=== PATIENT | male | born 1965 | race African-American/Black ===

== ENCOUNTER 2018-07-09 20:03 | Emergency (ER) | payer MEDICAID ==
[~2018-07-09] VITALS: Ht 170.2 cm; Wt 63.0 kg
[2018-07-09] MEDS ORDERED: KETOROLAC 60MG/2ML VIAL IM ONE (21:30)
[2018-07-09 23:09] VITALS: BP 146/84
== END 2018-07-09 23:10 | disposition home or self-care (01) ==
LOC: ER 20:29
DX: S20.212A Contusion of left front wall of thorax, initial encounter (principal); J45.909 Unspecified asthma, uncomplicated; F12.10 Cannabis abuse, uncomplicated; F15.10 Other stimulant abuse, uncomplicated; Y08.89XA Assault by other specified means, initial encounter; Y93.89 Activity, other specified; Y92.89 Other specified places as the place of occurrence of the external cause; Y99.8 Other external cause status
CPT/HCPCS: 71111; 96372; 99283; J1885; Z7610

== ENCOUNTER 2019-02-18 20:34 | Emergency (ER) | payer MEDICAID ==
[~2019-02-18] VITALS: Ht 170.2 cm; Wt 64.0 kg
[2019-02-18] MEDS ORDERED: ALBUTEROL (0.083%) 2.5MG/3ML NEB HHN STA (21:03)
[2019-02-18] MEDS ORDERED: METHYLPREDNISOLONE SOD SUCC 125 MG/2 ML VIAL IV STA (21:03)
[2019-02-18] MEDS ORDERED: MAGNESIUM 2 G PREMIX 50 ML IV STA (21:03)
[2019-02-18] MEDS ORDERED: IPRATROPIUM BROMIDE (0.02%) 0.5MG/2.5ML NEB HHN STA (21:03)
[2019-02-18 21:31] LABS: EOSINOPHILS % 5.9 % (0.0-5.0); HEMATOCRIT. 45.3 % (42.0-52.0); LYMPHOCYTES % 23.2 % (20.0-50.0); MEAN CORPUSCULAR HEMOGLOBIN 28.2 pg (28.0-32.0); MEAN CORPUSCULAR VOLUME 85.4 fL (80.0-94.0); MEAN PLATELET VOLUME 7.2 fl (7.4-10.4); MONOCYTES % 10.2 % (2.0-8.0); NEUTROPHILS % 59.7 % (40.0-76.0); PLATELET 267 x1000/uL (130-400); RED CELL DISTRIBUTION WIDTH 13.9 % (11.6-14.6)
[2019-02-18 21:36] LABS: CHLORIDE 107 mEq/L (98-107)
[2019-02-18] MEDS ORDERED: SODIUM CHLORIDE 0.9% 1,000 ML IV ONE (22:15)
[2019-02-18] MEDS ORDERED: PREDNISONE 20MG TABLET PO ONE (23:45)
[2019-02-19 00:25] VITALS: BP 120/71
== END 2019-02-19 00:52 | disposition home or self-care (01) ==
LOC: ER 20:34
DX: J45.901 Unspecified asthma with (acute) exacerbation (principal); F17.210 Nicotine dependence, cigarettes, uncomplicated; Z71.6 Tobacco abuse counseling
CPT/HCPCS: 36415; 71045; 80053; 83880; 84484; 85025; 93005; 94644; 96365; 96375; 99285; 99406; J2930; J3475; J7030; J7512; J7611; Z7610

== ENCOUNTER 2019-03-23 18:33 | Emergency (ER) | payer MEDICAID ==
[~2019-03-23] VITALS: Ht 172.7 cm; Wt 75.0 kg
[2019-03-23] MEDS ORDERED: ALBUTEROL (0.083%) 2.5MG/3ML NEB HHN STA (19:31)
[2019-03-23] MEDS ORDERED: MAGNESIUM 2 G PREMIX 50 ML IV STA (19:31)
[2019-03-23] MEDS ORDERED: METHYLPREDNISOLONE SOD SUCC 125 MG/2 ML VIAL IV STA (19:31)
[2019-03-23] MEDS ORDERED: IPRATROPIUM BROMIDE (0.02%) 0.5MG/2.5ML NEB HHN STA (19:31)
[2019-03-23 19:47] VITALS: BP 113/81
[2019-03-23 20:15] LABS: BASOPHILS % 0.4 % (0.0-2.0); EOSINOPHILS % 9.7 % (0.0-5.0); HEMATOCRIT. 44.7 % (42.0-52.0); HEMOGLOBIN. 14.9 g/dL (14.0-18.0); LYMPHOCYTES % 28.7 % (20.0-50.0); MEAN CORPUSCULAR HEMOGLOBIN 28.4 pg (28.0-32.0); MEAN CORPUSCULAR VOLUME 85.3 fL (80.0-94.0); MEAN PLATELET VOLUME 7.2 fl (7.4-10.4); MONOCYTES % 11.8 % (2.0-8.0); NEUTROPHILS % 49.4 % (40.0-76.0); PLATELET 245 x1000/uL (130-400); RED BLOOD CELL COUNT 5.24 mill/uL (4.7-6.1); RED CELL DISTRIBUTION WIDTH 14.9 % (11.6-14.6)
[2019-03-23 20:20] LABS: CHLORIDE 110 mEq/L (98-107)
[2019-03-23 20:24] LABS: ETHANOL BLOOD 75 mg/dL
[2019-03-23] MEDS ORDERED: PREDNISONE 20MG TABLET PO ONE (21:00)
== END 2019-03-23 21:34 | disposition home or self-care (01) ==
LOC: ER 18:33
DX: J45.901 Unspecified asthma with (acute) exacerbation (principal)
CPT/HCPCS: 36415; 71045; 80053; 80320; 83880; 84484; 85025; 93005; 94644; 96365; 96375; 99285; J2930; J3475; J7040; J7611; Z7610; G0480

== ENCOUNTER 2019-04-29 16:59 | Emergency (ER) | payer MEDICAID ==
[~2019-04-29] VITALS: Ht 167.6 cm; Wt 70.0 kg
[2019-04-29] MEDS ORDERED: IPRATROPIUM BROMIDE (0.02%) 0.5MG/2.5ML NEB HHN STA (17:46)
[2019-04-29] MEDS ORDERED: PREDNISONE 20MG TABLET PO STA (17:46)
[2019-04-29] MEDS ORDERED: ALBUTEROL (0.083%) 2.5MG/3ML NEB HHN STA (17:46)
[2019-04-29 19:02] VITALS: BP 102/83
== END 2019-04-29 19:03 | disposition home or self-care (01) ==
LOC: ER 16:59
DX: J44.1 Chronic obstructive pulmonary disease with (acute) exacerbation (principal); R06.03 Acute respiratory distress
CPT/HCPCS: 71045; 93005; 94640; 99283; J7512; J7611; Z7610

== ENCOUNTER 2019-07-03 20:40 | Emergency (ER) | payer MEDICAID ==
[~2019-07-03] VITALS: Ht 175.3 cm; Wt 75.0 kg
[2019-07-03] MEDS ORDERED: IPRATROPIUM BROMIDE (0.02%) 0.5MG/2.5ML NEB HHN STA (21:04)
[2019-07-03] MEDS ORDERED: PREDNISONE 20MG TABLET PO STA (21:04)
[2019-07-03] MEDS ORDERED: ALBUTEROL (0.083%) 2.5MG/3ML NEB HHN STA (21:04)
[2019-07-03 21:57] VITALS: BP 157/87
== END 2019-07-03 23:49 | disposition home or self-care (01) ==
LOC: ER 20:40
DX: J45.901 Unspecified asthma with (acute) exacerbation (principal)
CPT/HCPCS: 94640; 99283; J7512; Z7610

== ENCOUNTER 2019-08-04 03:54 | Emergency (ER) | payer MEDICAID ==
[~2019-08-04] VITALS: Ht 172.7 cm; Wt 86.0 kg
[2019-08-04] MEDS ORDERED: ALBUTEROL (0.083%) 2.5MG/3ML NEB HHN STA (04:44)
[2019-08-04] MEDS ORDERED: IPRATROPIUM BROMIDE (0.02%) 0.5MG/2.5ML NEB HHN STA (04:44)
[2019-08-04] MEDS ORDERED: PREDNISONE 20MG TABLET PO STA (04:44)
[2019-08-04 07:35] VITALS: BP 132/95
== END 2019-08-04 07:36 | disposition home or self-care (01) ==
LOC: ER 03:54
DX: J45.901 Unspecified asthma with (acute) exacerbation (principal)
CPT/HCPCS: 71045; 94640; 99283; J7512; Z7610

== ENCOUNTER 2019-08-10 03:34 | Emergency (ER) | payer MEDICAID ==
[~2019-08-10] VITALS: Ht 172.7 cm; Wt 73.0 kg
[2019-08-10] MEDS ORDERED: ALBUTEROL (0.083%) 2.5MG/3ML NEB HHN STA (03:45)
[2019-08-10] MEDS ORDERED: MAGNESIUM 2 G PREMIX 50 ML IV STA (03:45)
[2019-08-10] MEDS ORDERED: PREDNISONE 20MG TABLET PO STA (03:45)
[2019-08-10] MEDS ORDERED: IPRATROPIUM BROMIDE (0.02%) 0.5MG/2.5ML NEB HHN STA (03:45)
[2019-08-10 05:47] VITALS: BP 130/75
== END 2019-08-10 05:50 | disposition home or self-care (01) ==
LOC: ER 03:34
DX: J45.901 Unspecified asthma with (acute) exacerbation (principal); R03.0 Elevated blood-pressure reading, without diagnosis of hypertension
CPT/HCPCS: 71045; 94640; 96365; 99284; J3475; J7512; Z7610

== ENCOUNTER 2019-08-10 22:07 | Emergency (ER) | payer MEDICAID ==
[~2019-08-10] VITALS: Ht 170.2 cm; Wt 63.0 kg
[2019-08-10] MEDS ORDERED: IPRATROPIUM BROMIDE (0.02%) 0.5MG/2.5ML NEB HHN STA (23:02)
[2019-08-10] MEDS ORDERED: METHYLPREDNISOLONE SOD SUCC 125 MG/2 ML VIAL IM STA (23:02)
[2019-08-10] MEDS ORDERED: ALBUTEROL (0.083%) 2.5MG/3ML NEB HHN STA (23:02)
[2019-08-11 01:19] VITALS: BP 129/72
== END 2019-08-11 01:22 | disposition home or self-care (01) ==
LOC: ER 22:07
DX: J45.901 Unspecified asthma with (acute) exacerbation (principal)
CPT/HCPCS: 96372; 99283; J2930; Z7610

== ENCOUNTER 2019-08-15 01:27 | Emergency (ER) | payer MEDICAID ==
[~2019-08-15] VITALS: Ht 165.1 cm; Wt 82.0 kg
[2019-08-15 03:17] LABS: BASOPHILS % 0.6 % (0.0-2.0); EOSINOPHILS % 10.8 % (0.0-5.0); HEMATOCRIT. 40.9 % (42.0-52.0); HEMOGLOBIN. 13.7 g/dL (14.0-18.0); LYMPHOCYTES % 25.6 % (20.0-50.0); MEAN CORPUSCULAR HEMOGLOBIN 28.6 pg (28.0-32.0); MEAN CORPUSCULAR VOLUME 84.9 fL (80.0-94.0); MEAN PLATELET VOLUME 6.7 fl (7.4-10.4); MONOCYTES % 8.9 % (2.0-8.0); NEUTROPHILS % 54.1 % (40.0-76.0); PLATELET 255 x1000/uL (130-400); RED BLOOD CELL COUNT 4.81 mill/uL (4.7-6.1); RED CELL DISTRIBUTION WIDTH 14.4 % (11.6-14.6)
[2019-08-15 03:22] LABS: CHLORIDE 108 mEq/L (98-107)
[2019-08-15 03:26] LABS: ETHANOL BLOOD 94 mg/dL
[2019-08-15] MEDS ORDERED: ONDANSETRON 4MG ODT PO ONE (04:00)
[2019-08-15 04:29] LABS: *AMPHETAMINES SCREEN URINE NEGATIVE (NEGATIVE); *BARBITURATES SCREEN URINE NEGATIVE (NEGATIVE); *BENZODIAZEPINES SCREEN URINE NEGATIVE (NEGATIVE); CANNABINOID URINE SCREEN NEGATIVE (NEGATIVE); METHADONE URINE SCREEN NEGATIVE (NEGATIVE); OPIATES URINE SCREEN NEGATIVE (NEGATIVE); PHENCYCLIDINE URINE SCREEN NEGATIVE (NEGATIVE)
[2019-08-15 04:30] LABS: *COCAINE SCREEN URINE NEGATIVE (NEGATIVE)
[2019-08-15 08:20] VITALS: BP 124/76
== END 2019-08-15 08:20 | disposition home or self-care (01) ==
LOC: ER 01:27
DX: F10.129 Alcohol abuse with intoxication, unspecified (principal); F19.10 Other psychoactive substance abuse, uncomplicated; Y90.4 Blood alcohol level of 80-99 mg/100 ml
CPT/HCPCS: 36415; 80053; 80305; 80320; 82962; 84484; 85025; 93005; 99285; Q0162; Z7610; G0480

== ENCOUNTER 2019-10-20 00:43 | Inpatient (IN) | payer MEDICAID ==
[~2019-10-20] VITALS: Ht 170.2 cm; Wt 65.5 kg
[2019-10-20] VITALS (9 sets, daily range): BP systolic 12–128; BP diastolic 49–85
[2019-10-20] MEDS ORDERED: IPRATROPIUM BROMIDE (0.02%) 0.5MG/2.5ML NEB HHN STA (00:59)
[2019-10-20] MEDS ORDERED: ALBUTEROL (0.083%) 2.5MG/3ML NEB HHN STA (00:59)
[2019-10-20] MEDS ORDERED: METHYLPREDNISOLONE SOD SUCC 125 MG/2 ML VIAL IV STA (00:59)
[2019-10-20] MEDS ORDERED: MAGNESIUM 2 G PREMIX 50 ML IV ONE (02:00)
[2019-10-20 02:58] LABS: CHLORIDE 100 mEq/L (98-107)
[2019-10-20 03:06] LABS: HEMATOCRIT 46.5 % (42.0-52.0); HEMOGLOBIN 15.4 g/dL (14.0-18.0); MEAN CORPUSCULAR HEMOGLOBIN 28.6 pg (28.0-32.0); MEAN CORPUSCULAR VOLUME 86.1 fL (80.0-94.0); PLATELET 289 x1000/uL (130-400); RED CELL DISTRIBUTION WIDTH 13.4 % (11.6-14.6)
[2019-10-20] MEDS ORDERED: ONDANSETRON HCL 4MG/2ML INJ IV PRN (09:30)
[2019-10-20] MEDS ORDERED: ACETAMINOPHEN 325MG TABLET PO PRN (09:30)
[2019-10-20] MEDS: ENOXAPARIN 40MG/0.4ML SYR SUBCUT SCH (10:50)
[2019-10-20] MEDS: METHYLPREDNISOLONE SOD SUCC 40 MG/ML VIAL IV SCH ×2 (11:36→18:42)
[2019-10-20] MEDS: IPRATROPIUM/ALBUTEROL 0.5-3(2.5)MG/3ML NEB HHN SCH ×2 (13:31→16:09)
[2019-10-20] MEDS ORDERED: FLUT1DIS3 INH (15:40)
[2019-10-20] MEDS ORDERED: ALBU18HF2 IH (15:40)
[2019-10-21] VITALS (15 sets, daily range): BP systolic 97–127; BP diastolic 55–81
[2019-10-21] MEDS: METHYLPREDNISOLONE SOD SUCC 40 MG/ML VIAL IV SCH ×3 (04:00→18:56)
[2019-10-21 05:14] LABS: *AMPHETAMINES SCREEN URINE NEGATIVE (NEGATIVE); *BARBITURATES SCREEN URINE NEGATIVE (NEGATIVE); *BENZODIAZEPINES SCREEN URINE NEGATIVE (NEGATIVE); *COCAINE SCREEN URINE NEGATIVE (NEGATIVE); METHADONE URINE SCREEN NEGATIVE (NEGATIVE); OPIATES URINE SCREEN NEGATIVE (NEGATIVE)
[2019-10-21 05:15] LABS: CANNABINOID URINE SCREEN PRESUMTIVE POSITIVE (NEGATIVE); PHENCYCLIDINE URINE SCREEN NEGATIVE (NEGATIVE)
[2019-10-21] MEDS: IPRATROPIUM/ALBUTEROL 0.5-3(2.5)MG/3ML NEB HHN SCH ×3 (08:08→21:03)
[2019-10-21] MEDS: ENOXAPARIN 40MG/0.4ML SYR SUBCUT SCH (08:53)
[2019-10-21] MEDS ORDERED: MED4 MT (13:24)
[2019-10-21 14:08] LABS: BG BASE EXCESS 1.4 mmol/L (-2.0-2.0); BG CARBOXYHEMOGLOBIN 0.6 % (0.5-1.5); BG FRACTION INSPIRED OXYGEN 21; BG METHEMOGLOBIN 0.3 % (0.0-1.5); BG OXYHEMOGLOBIN 95.1 % (94.0-97.0); BG PCO2 41.2 mmHg (35.0-45.0); BG PH 7.418 (7.350-7.450); BG PO2 74.2 mmHg (75.0-100.0); BG SAMPLE SITE RIGHT RADIAL; BG TOTAL HEMOGLOBIN 15.5 g/dL (12.0-18.0); BG VENT MODE ROOM AIR
[2019-10-22] VITALS (11 sets, daily range): BP systolic 99–126; BP diastolic 53–103
[2019-10-22] MEDS: METHYLPREDNISOLONE SOD SUCC 40 MG/ML VIAL IV SCH ×2 (03:13→12:01)
[2019-10-22] MEDS: IPRATROPIUM/ALBUTEROL 0.5-3(2.5)MG/3ML NEB HHN SCH ×3 (04:13→13:17)
[2019-10-22] MEDS: ENOXAPARIN 40MG/0.4ML SYR SUBCUT SCH (09:51)
== END 2019-10-22 15:10 | disposition home or self-care (01) | DRG 140 ==
LOC: ER 00:43 → 3WST 02:28 → EDBEDREQ 02:38 → EDBEDREQTM 02:38 → ENRESERV 07:25
PROVIDERS: ADMIT Internal Medicine; ATTEND Internal Medicine
PROC: 5A09357 Assistance with Respiratory Ventilation, Less than 24 Consecutive Hours, Continuous Positive Airway Pressure (ICD-10-PCS; principal; 2019-10-20)
DX: J44.1 Chronic obstructive pulmonary disease with (acute) exacerbation (principal); J45.901 Unspecified asthma with (acute) exacerbation; J96.00 Acute respiratory failure, unspecified whether with hypoxia or hypercapnia; F10.10 Alcohol abuse, uncomplicated; F17.210 Nicotine dependence, cigarettes, uncomplicated; Z71.6 Tobacco abuse counseling
CPT/HCPCS: 36415; 36600; 71045; 80053; 80305; 82375; 82805; 85027; 94618; 94640; 94644; 94660; 97162; 99291; J1650; J2920; J2930; J3475

== ENCOUNTER 2021-02-16 16:38 | Inpatient (IN) | payer MEDICAID ==
[~2021-02-16] VITALS: Ht 170.2 cm; Wt 70.3 kg
[~2021-02-16 16:38] MED LIST: CLAR10 PO; FLUT1DIS3 INH; IPRA3AMP9 HHN; MED4 MT; MONT10TA21 PO
[2021-02-16] MEDS ORDERED: METHYLPREDNISOLONE SOD SUCC 125 MG/2 ML VIAL IV STA (17:35)
[2021-02-16] MEDS ORDERED: IPRATROPIUM BROMIDE (0.02%) 0.5MG/2.5ML NEB HHN STA (17:35)
[2021-02-16 17:44] LABS: BASOPHILS % 0.4 % (0.0-2.0); EOSINOPHILS % 2.3 % (0.0-5.0); HEMATOCRIT. 41.7 % (42.0-52.0); HEMOGLOBIN. 13.3 g/dL (14.0-18.0); LYMPHOCYTES % 20.8 % (20.0-50.0); MEAN CORPUSCULAR HEMOGLOBIN 25.5 pg (28.0-32.0); MEAN PLATELET VOLUME 6.9 fl (7.4-10.4); MONOCYTES % 12.7 % (2.0-8.0); NEUTROPHILS % 63.8 % (40.0-76.0); PLATELET 308 x1000/uL (130-400); RED BLOOD CELL COUNT 5.22 mill/uL (4.7-6.1); RED CELL DISTRIBUTION WIDTH 14.9 % (11.6-14.6)
[2021-02-16 17:53] LABS: CHLORIDE 104 mEq/L (98-107)
[2021-02-16] MEDS: ALBUTEROL (0.083%) 2.5MG/3ML NEB HHN SCH ×3 (18:01→18:50)
[2021-02-16 18:29] LABS: BG BASE EXCESS 3.3 mmol/L (-2.0-2.0); BG CARBOXYHEMOGLOBIN 0.3 % (0.5-1.5); BG DEOXYHEMOGLOBIN 6.4 % (0.0-5.0); BG FRACTION INSPIRED OXYGEN 21; BG HCO3 ACT 29.4 mmol/L (22.0-26.0); BG METHEMOGLOBIN 0.4 % (0.0-1.5); BG OXYGEN SATURATION 93.6 % (92.0-98.5); BG OXYHEMOGLOBIN 92.9 % (94.0-97.0); BG PCO2 50.5 mmHg (35.0-45.0); BG PH 7.383 (7.350-7.450); BG PO2 72.4 mmHg (75.0-100.0); BG SAMPLE SITE RIGHT RADIAL; BG TOTAL HEMOGLOBIN 13.7 g/dL (12.0-18.0); BG VENT MODE ROOM AIR
[2021-02-16] MEDS ORDERED: DOXYCYCLINE 100MG in DEXTROSE 5% WATER 100ML IV NR (20:12)
[2021-02-16] MEDS ORDERED: DOXYCYCLINE HYCLATE 100 MG/VIAL IV ONE (20:15)
[2021-02-16] MEDS ORDERED: CEFTRIAXONE 1 G PREMIX 50 ML IV ONE (20:15)
[2021-02-17] VITALS (7 sets, daily range): BP systolic 105–131; BP diastolic 65–85
[2021-02-17 00:37] LABS: BG BASE EXCESS 1.2 mmol/L (-2.0-2.0); BG CARBOXYHEMOGLOBIN 0.3 % (0.5-1.5); BG DEOXYHEMOGLOBIN 1.5 % (0.0-5.0); BG FRACTION INSPIRED OXYGEN 30; BG HCO3 ACT 26.6 mmol/L (22.0-26.0); BG METHEMOGLOBIN 0.2 % (0.0-1.5); BG OXYGEN SATURATION 98.5 % (92.0-98.5); BG PH 7.389 (7.350-7.450); BG PO2 132.3 mmHg (75.0-100.0); BG SAMPLE SITE RIGHT RADIAL; BG TOTAL HEMOGLOBIN 13.9 g/dL (12.0-18.0); BG VENT MODE MASK - BIPAP
[2021-02-17] MEDS ORDERED: IPRATROPIUM/ALBUTEROL 0.5-3(2.5)MG/3ML NEB HHN PRN ×3 (02:30→08:00)
[2021-02-17] MEDS ORDERED: ACETAMINOPHEN 325MG TABLET PO PRN ×2 (04:45→08:00)
[2021-02-17] MEDS ORDERED: ZOLPIDEM TARTRATE 5MG TABLET PO PRN (04:45)
[2021-02-17] MEDS ORDERED: ONDANSETRON HCL 4MG/2ML INJ IV PRN (04:45)
[2021-02-17] MEDS ORDERED: AZITHROMYCIN 500MG in DEXTROSE 5% WATER 250ML IV SCH (06:00)
[2021-02-17] MEDS: IPRATROPIUM/ALBUTEROL 0.5-3(2.5)MG/3ML NEB HHN SCH ×2 (07:38→11:39)
[2021-02-17] MEDS ORDERED: CLONIDINE 0.1MG TABLET PO PRN (08:00)
[2021-02-17] MEDS ORDERED: DOCUSATE SODIUM 100MG CAPSULE PO PRN (08:00)
[2021-02-17] MEDS ORDERED: HYDROCODONE/ACETAMINOPHEN 5/325MG TABLET PO PRN (08:00)
[2021-02-17] MEDS ORDERED: MAGNESIUM/ALUMINUM HYDROXIDE/SIMETHICONE 30ML UDC PO PRN (08:00)
[2021-02-17] MEDS ORDERED: NALOXONE HCL 0.4MG/ML VIAL IV PRN (08:15)
[2021-02-17] MEDS ORDERED: METHYLPREDNISOLONE SOD SUCC 40 MG/ML VIAL IV SCH (09:00)
[2021-02-17] MEDS ORDERED: CEFTRIAXONE SODIUM 1 G/VIAL IV SCH (09:00)
[2021-02-17] MEDS ORDERED: ENOXAPARIN 40MG/0.4ML SYR SUBCUT SCH (09:00)
[2021-02-17] MEDS ORDERED: AZITHROMYCIN 500MG/250ML 250 ML IV SCH (09:00)
[2021-02-17] MEDS ORDERED: FAMOTIDINE 20MG TABLET PO SCH (09:00)
[2021-02-17 10:46] LABS: *BARBITURATES SCREEN URINE NEGATIVE (NEGATIVE)
[2021-02-17 10:47] LABS: *BENZODIAZEPINES SCREEN URINE NEGATIVE (NEGATIVE); *COCAINE SCREEN URINE NEGATIVE (NEGATIVE); METHADONE URINE SCREEN NEGATIVE (NEGATIVE); OPIATES URINE SCREEN NEGATIVE (NEGATIVE); PHENCYCLIDINE URINE SCREEN NEGATIVE (NEGATIVE)
[2021-02-17 10:48] LABS: *AMPHETAMINES SCREEN URINE PRESUMTIVE POSITIVE (NEGATIVE)
[2021-02-17 11:22] LABS: CANNABINOID URINE SCREEN PRESUMTIVE POSITIVE (NEGATIVE)
[2021-02-17] MEDS ORDERED: CEFTRIAXONE 1,000 MG in DEXTROSE 5% WATER 50 ML IV SCH (21:00)
== END 2021-02-17 18:21 | disposition home or self-care (01) | DRG 140 ==
LOC: ER 16:38 → 5EST 21:10 → ENRESERV 02-17 03:14
PROVIDERS: ADMIT Internal Medicine; ATTEND Internal Medicine
PROC: 5A09357 Assistance with Respiratory Ventilation, Less than 24 Consecutive Hours, Continuous Positive Airway Pressure (ICD-10-PCS; principal; 2021-02-16)
DX: J44.1 Chronic obstructive pulmonary disease with (acute) exacerbation (principal); J96.02 Acute respiratory failure with hypercapnia; Z20.822 Contact with and (suspected) exposure to COVID-19
CPT/HCPCS: 36415; 36600; 71045; 80053; 80305; 82375; 82805; 83880; 84484; 85025; 87426; 93005; 93970; 94640; 94660; 99291; J0456; J0696; J1650; J2920; J2930; J3490; J7060

== ENCOUNTER 2022-08-15 23:07 | Inpatient (IN) | payer MEDICAID, OTHER ==
[2022-08-13] MEDS: ALBUTEROL (0.083%) 2.5MG/3ML NEB HHN SCH (23:40)
[~2022-08-15] VITALS: Ht 165.1 cm; Wt 70.8 kg
[~2022-08-15 23:07] MED LIST changes: -MED4 MT; +MONT-46 PO; -MONT10TA21 PO
[2022-08-15] MEDS ORDERED: METHYLPREDNISOLONE SOD SUCC 125 MG/2 ML VIAL IV STA (23:20)
[2022-08-15] MEDS ORDERED: IPRATROPIUM BROMIDE (0.02%) 0.5MG/2.5ML NEB HHN STA (23:20)
[2022-08-15] MEDS ORDERED: ONDANSETRON HCL 4MG/2ML INJ IV STA (23:20)
[2022-08-15] MEDS ORDERED: MORPHINE SULFATE 4 MG/ML CPJ (NOT FOR IM USE) IV STA (23:20)
[2022-08-15] MEDS ORDERED: MIDAZOLAM HCL 2 MG/2 ML VIAL IV ONE ×2 (23:30)
[2022-08-15] MEDS ORDERED: MAGNESIUM 2 G PREMIX 50 ML IV ONE (23:30)
[2022-08-15] MEDS ORDERED: SUCCINYLCHOLINE CHLORIDE 200MG/10ML IV ONE (23:30)
[2022-08-15] MEDS ORDERED: SODIUM CHLORIDE 0.9% 1,000 ML IV ONE (23:30)
[2022-08-15] MEDS ORDERED: MIDAZOLAM HCL 100 MG in DEXT 5% WATER 80 ML IV ONE (23:30)
[2022-08-15] MEDS ORDERED: PROPOFOL 10MG/ML 100ML 100 ML IV ONE (23:30)
[2022-08-15] MEDS ORDERED: ETOMIDATE 2MG/ML 10ML VIAL IV ONE (23:30)
[2022-08-15] MEDS: ALBUTEROL (0.083%) 2.5MG/3ML NEB HHN SCH (23:40)
[2022-08-15] MEDS ORDERED: MIDAZOLAM HCL 100 MG in SODIUM CHLORIDE 0.9% 80 ML IV ONE (23:45)
[2022-08-15 23:57] LABS: BASOPHILS % 0.3 % (0.0-2.0); EOSINOPHILS % 0.5 % (0.0-5.0); HEMATOCRIT. 47.5 % (42.0-52.0); HEMOGLOBIN. 15.3 g/dL (14.0-18.0); LYMPHOCYTES % 8.4 % (20.0-50.0); MEAN CORPUSCULAR HEMOGLOBIN 26.8 pg (28.0-32.0); MEAN CORPUSCULAR VOLUME 83.4 fL (80.0-94.0); MEAN PLATELET VOLUME 7.3 fl (7.4-10.4); MONOCYTES % 9.1 % (2.0-8.0); NEUTROPHILS % 81.7 % (40.0-76.0); PLATELET 293 x1000/uL (130-400); RED CELL DISTRIBUTION WIDTH 15.7 % (11.6-14.6)
[2022-08-16] VITALS (65 sets, daily range): BP systolic 105–155; BP diastolic 52–117
[2022-08-16 00:06] LABS: CHLORIDE 94 mEq/L (98-107)
[2022-08-16] MEDS ORDERED: SODIUM CHLORIDE 0.9% 1,000 ML IV ONE ×3 (00:30→01:45)
[2022-08-16 00:47] LABS: BG BASE EXCESS -3.1 mmol/L (-2.0-2.0); BG CARBOXYHEMOGLOBIN 0.8 % (0.5-1.5); BG DEOXYHEMOGLOBIN 0.3 % (0.0-5.0); BG FRACTION INSPIRED OXYGEN 60; BG HCO3 ACT 25.6 mmol/L (22.0-26.0); BG METHEMOGLOBIN 0.4 % (0.0-1.5); BG OXYGEN SATURATION 99.7 % (92.0-98.5); BG OXYHEMOGLOBIN 98.5 % (94.0-97.0); BG PCO2 62.3 mmHg (35.0-45.0); BG PH 7.232 (7.350-7.450); BG PO2 290.7 mmHg (75.0-100.0); BG SAMPLE SITE RIGHT RADIAL; BG TOTAL HEMOGLOBIN 14.2 g/dL (12.0-18.0); BG TOTAL RESPIRATORY RATE 23 b/min; BG VENT MODE VENT - AC
[2022-08-16] MEDS ORDERED: PROPOFOL 10MG/ML 100ML 100 ML IV PRN ×2 (03:15→06:45)
[2022-08-16] MEDS ORDERED: PROPOFOL 10MG/ML 100ML 100 ML IV ONE (03:15)
[2022-08-16] MEDS ORDERED: IOHEXOL-350 100 ML BOTTLE ONE (06:14)
[2022-08-16] MEDS ORDERED: MIDAZOLAM 100MG/100ML PMX 100 ML IV PRN (06:45)
[2022-08-16] MEDS ORDERED: MIDAZOLAM HCL 100 MG in SODIUM CHLORIDE 0.9% 100 ML IV PRN (06:45)
[2022-08-16 07:37] LABS: BG BASE EXCESS -2.4 mmol/L (-2.0-2.0); BG CARBOXYHEMOGLOBIN 0.7 % (0.5-1.5); BG DEOXYHEMOGLOBIN 1.5 % (0.0-5.0); BG FRACTION INSPIRED OXYGEN 40; BG HCO3 ACT 23.6 mmol/L (22.0-26.0); BG METHEMOGLOBIN 0.2 % (0.0-1.5); BG OXYGEN SATURATION 98.5 % (92.0-98.5); BG OXYHEMOGLOBIN 97.6 % (94.0-97.0); BG PCO2 45.1 mmHg (35.0-45.0); BG PH 7.337 (7.350-7.450); BG PO2 128.5 mmHg (75.0-100.0); BG SAMPLE SITE RIGHT RADIAL; BG TOTAL HEMOGLOBIN 14.1 g/dL (12.0-18.0); BG VENT MODE VENT - AC
[2022-08-16] MEDS: IPRATROPIUM/ALBUTEROL 0.5-3(2.5)MG/3ML NEB HHN SCH ×4 (08:06→20:53)
[2022-08-16] MEDS: ENOXAPARIN 80MG/0.8ML SYR SUBCUT SCH ×2 (08:20→20:45)
[2022-08-16] MEDS: METHYLPREDNISOLONE SOD SUCC 40 MG/ML VIAL IV SCH ×2 (08:55→16:30)
[2022-08-16] MEDS: PROPOFOL 10MG/ML 100ML 100 ML IV PRN ×3 (12:18→21:15)
[2022-08-16] MEDS: FENTANYL CITRATE/PF 2,500 MCG in SODIUM CHLORIDE 0.9% 200 ML IV PRN (12:40)
[2022-08-16 13:00] LABS: CHLORIDE 105 mEq/L (98-107)
[2022-08-16] MEDS: MONTELUKAST SODIUM 10MG TABLET PO SCH (17:25)
[2022-08-16 18:24] LABS: CLARITY URINE CLOUDY (CLEAR); COLOR URINE YELLOW (YELLOW); KETONES URINE 1+ (NEGATIVE); LEUKOCYTE ESTERASE URINE 3+ (NEGATIVE); NITRITE URINE NEGATIVE (NEGATIVE); OCCULT BLOOD URINE 2+ (NEGATIVE); PROTEIN URINE 1+ (NEGATIVE); SPECIFIC GRAVITY URINE 1.028 (1.005-1.030)
[2022-08-16 18:50] LABS: *AMPHETAMINES SCREEN URINE NEGATIVE (NEGATIVE); *BARBITURATES SCREEN URINE NEGATIVE (NEGATIVE); *BENZODIAZEPINES SCREEN URINE PRESUMTIVE POSITIVE (NEGATIVE); *COCAINE SCREEN URINE NEGATIVE (NEGATIVE); CANNABINOID URINE SCREEN PRESUMTIVE POSITIVE (NEGATIVE); METHADONE URINE SCREEN NEGATIVE (NEGATIVE); OPIATES URINE SCREEN PRESUMTIVE POSITIVE (NEGATIVE); PHENCYCLIDINE URINE SCREEN NEGATIVE (NEGATIVE)
[2022-08-17] VITALS (81 sets, daily range): BP systolic 88–157; BP diastolic 51–111
[2022-08-17] MEDS: METHYLPREDNISOLONE SOD SUCC 40 MG/ML VIAL IV SCH ×3 (00:32→17:27)
[2022-08-17] MEDS: PROPOFOL 10MG/ML 100ML 100 ML IV PRN ×6 (01:46→19:08)
[2022-08-17 06:48] LABS: CHLORIDE 105 mEq/L (98-107)
[2022-08-17 06:49] LABS: BASOPHILS % 0.1 % (0.0-2.0); EOSINOPHILS % 0.2 % (0.0-5.0); HEMATOCRIT. 38.1 % (42.0-52.0); HEMOGLOBIN. 12.7 g/dL (14.0-18.0); LYMPHOCYTES % 8.2 % (20.0-50.0); MEAN CORPUSCULAR HEMOGLOBIN 27.3 pg (28.0-32.0); MEAN CORPUSCULAR VOLUME 82.2 fL (80.0-94.0); MONOCYTES % 10.8 % (2.0-8.0); NEUTROPHILS % 80.7 % (40.0-76.0); PLATELET 243 x1000/uL (130-400); RED BLOOD CELL COUNT 4.64 mill/uL (4.7-6.1); RED CELL DISTRIBUTION WIDTH 15.5 % (11.6-14.6)
[2022-08-17 06:53] LABS: PROTHROMBIN TIME 10.4 sec (9.6-11.0)
[2022-08-17] MEDS: IPRATROPIUM/ALBUTEROL 0.5-3(2.5)MG/3ML NEB HHN SCH ×3 (07:44→20:29)
[2022-08-17] MEDS: PANTOPRAZOLE SODIUM 40 MG/VIAL IV SCH (08:13)
[2022-08-17] MEDS: ENOXAPARIN 80MG/0.8ML SYR SUBCUT SCH ×2 (08:13→20:11)
[2022-08-17 08:59] LABS: BG BASE EXCESS 3.5 mmol/L (-2.0-2.0); BG CARBOXYHEMOGLOBIN 0.5 % (0.5-1.5); BG DEOXYHEMOGLOBIN 2.1 % (0.0-5.0); BG FRACTION INSPIRED OXYGEN 30; BG HCO3 ACT 28.2 mmol/L (22.0-26.0); BG METHEMOGLOBIN 0.1 % (0.0-1.5); BG OXYGEN SATURATION 97.9 % (92.0-98.5); BG OXYHEMOGLOBIN 97.3 % (94.0-97.0); BG PCO2 43.2 mmHg (35.0-45.0); BG PH 7.433 (7.350-7.450); BG PO2 102.6 mmHg (75.0-100.0); BG SAMPLE SITE LEFT RADIAL; BG TOTAL HEMOGLOBIN 13.6 g/dL (12.0-18.0); BG TOTAL RESPIRATORY RATE 22 b/min; BG VENT MODE VENT - AC
[2022-08-17] MEDS: CEFEPIME 1,000 MG in DEXTROSE 5% WATER 50 ML IV SCH ×2 (11:40→20:11)
[2022-08-17] MEDS: MONTELUKAST SODIUM 10MG TABLET PO SCH (17:28)
[2022-08-18] VITALS (92 sets, daily range): BP systolic 93–197; BP diastolic 48–121
[2022-08-18] MEDS: PROPOFOL 10MG/ML 100ML 100 ML IV PRN ×3 (00:03→08:25)
[2022-08-18] MEDS: METHYLPREDNISOLONE SOD SUCC 40 MG/ML VIAL IV SCH ×2 (00:08→08:24)
[2022-08-18] MEDS: IPRATROPIUM/ALBUTEROL 0.5-3(2.5)MG/3ML NEB HHN SCH ×4 (02:01→19:49)
[2022-08-18] MEDS: ENOXAPARIN 80MG/0.8ML SYR SUBCUT SCH ×2 (08:23→20:03)
[2022-08-18] MEDS: PANTOPRAZOLE SODIUM 40 MG/VIAL IV SCH (08:24)
[2022-08-18] MEDS: CEFEPIME 1,000 MG in DEXTROSE 5% WATER 50 ML IV SCH ×2 (08:24→21:31)
[2022-08-18] MEDS ORDERED: PROPOFOL 10MG/ML 100ML 100 ML IV PRN (08:30)
[2022-08-18] MEDS ORDERED: TERBUTALINE SULFATE 1MG/ML VIAL SUBCUT NR (11:00)
[2022-08-18] MEDS: METHYLPREDNISOLONE SOD SUCC 125 MG/2 ML VIAL IV SCH ×2 (11:52→17:34)
[2022-08-18] MEDS: IPRATROPIUM/ALBUTEROL 0.5-3(2.5)MG/3ML NEB HHN PRN ×2 (12:38→16:48)
[2022-08-18] MEDS: MIDAZOLAM HCL 100 MG in SODIUM CHLORIDE 0.9% 80 ML IV PRN (14:46)
[2022-08-18] MEDS: MONTELUKAST SODIUM 10MG TABLET PO SCH (17:34)
[2022-08-18] MEDS: FENTANYL CITRATE/PF 2,500 MCG in SODIUM CHLORIDE 0.9% 200 ML IV PRN (17:37)
[2022-08-19] VITALS (60 sets, daily range): BP systolic 98–136; BP diastolic 34–99
[2022-08-19] MEDS: METHYLPREDNISOLONE SOD SUCC 125 MG/2 ML VIAL IV SCH ×4 (01:37→18:01)
[2022-08-19] MEDS: IPRATROPIUM/ALBUTEROL 0.5-3(2.5)MG/3ML NEB HHN SCH ×5 (02:08→20:54)
[2022-08-19] MEDS: MIDAZOLAM HCL 100 MG in SODIUM CHLORIDE 0.9% 80 ML IV PRN ×2 (03:52→17:42)
[2022-08-19 08:56] LABS: BG BASE EXCESS 3.5 mmol/L (-2.0-2.0); BG CARBOXYHEMOGLOBIN 0.8 % (0.5-1.5); BG DEOXYHEMOGLOBIN 3.8 % (0.0-5.0); BG FRACTION INSPIRED OXYGEN 30; BG HCO3 ACT 29.6 mmol/L (22.0-26.0); BG METHEMOGLOBIN 0.3 % (0.0-1.5); BG OXYGEN SATURATION 96.2 % (92.0-98.5); BG OXYHEMOGLOBIN 95.1 % (94.0-97.0); BG PCO2 51.2 mmHg (35.0-45.0); BG PO2 85.7 mmHg (75.0-100.0); BG SAMPLE SITE RIGHT RADIAL; BG TOTAL HEMOGLOBIN 13.4 g/dL (12.0-18.0); BG VENT MODE VENT - AC
[2022-08-19] MEDS: ENOXAPARIN 80MG/0.8ML SYR SUBCUT SCH ×2 (09:36→21:24)
[2022-08-19] MEDS: PANTOPRAZOLE SODIUM 40 MG/VIAL IV SCH (09:36)
[2022-08-19] MEDS: CEFEPIME 1,000 MG in DEXTROSE 5% WATER 50 ML IV SCH ×2 (09:37→21:24)
[2022-08-19] MEDS: IPRATROPIUM/ALBUTEROL 0.5-3(2.5)MG/3ML NEB HHN PRN ×3 (10:16→17:43)
[2022-08-19] MEDS: THEOPHYLLINE ANHYDROUS 80 MG/15 ML 120ML PO SCH ×2 (13:00→18:03)
[2022-08-19] MEDS: BUDESONIDE 0.5MG/2ML NEB HHN SCH ×2 (13:59→20:54)
[2022-08-19 16:27] LABS: HEMATOCRIT. 38.2 % (42.0-52.0); HEMOGLOBIN. 12.6 g/dL (14.0-18.0); MEAN CORPUSCULAR HEMOGLOBIN 27.2 pg (28.0-32.0); MEAN CORPUSCULAR VOLUME 82.3 fL (80.0-94.0); MEAN PLATELET VOLUME 7.9 fl (7.4-10.4); PLATELET 286 x1000/uL (130-400); RED BLOOD CELL COUNT 4.65 mill/uL (4.7-6.1); RED CELL DISTRIBUTION WIDTH 15.9 % (11.6-14.6)
[2022-08-19 16:30] LABS: PROTHROMBIN TIME 10.9 sec (9.6-11.0)
[2022-08-19 16:36] LABS: CHLORIDE 108 mEq/L (98-107)
[2022-08-19] MEDS: FENTANYL CITRATE/PF 2,500 MCG in SODIUM CHLORIDE 0.9% 200 ML IV PRN (17:42)
[2022-08-19] MEDS: MONTELUKAST SODIUM 10MG TABLET PO SCH (18:01)
[2022-08-19 18:05] LABS: PLATELET ESTIMATE NORMAL
[2022-08-19 19:06] LABS: DRVVT LA 44.4 sec (0.0-47.0); PTT-LA 35.8 sec (0.0-43.5)
[2022-08-19] MEDS ORDERED: LORAZEPAM 2MG/ML CPJ IV NR (21:43)
[2022-08-19] MEDS ORDERED: NOREPINEPHRINE 32 MG in DEXT 5% WATER 218 ML IV PRN (23:15)
[2022-08-19] MEDS ORDERED: PHENYLEPHRINE 100 MG in DEXT 5% WATER 240 ML IV PRN (23:15)
[2022-08-20] VITALS (65 sets, daily range): BP systolic 106–186; BP diastolic 72–136
[2022-08-20] MEDS: IPRATROPIUM/ALBUTEROL 0.5-3(2.5)MG/3ML NEB HHN SCH ×6 (01:11→20:15)
[2022-08-20] MEDS: METHYLPREDNISOLONE SOD SUCC 125 MG/2 ML VIAL IV SCH ×2 (01:45→06:46)
[2022-08-20] MEDS: THEOPHYLLINE ANHYDROUS 80 MG/15 ML 120ML PO SCH (01:54)
[2022-08-20 04:07] LABS: LUPUS ANTICOAG INTERPRETATION Comment: (.)
[2022-08-20 06:45] LABS: HEMATOCRIT. 38.2 % (42.0-52.0); HEMOGLOBIN. 12.4 g/dL (14.0-18.0); MEAN CORPUSCULAR HEMOGLOBIN 26.6 pg (28.0-32.0); MEAN CORPUSCULAR VOLUME 82.2 fL (80.0-94.0); MEAN PLATELET VOLUME 7.6 fl (7.4-10.4); PLATELET 320 x1000/uL (130-400); RED BLOOD CELL COUNT 4.65 mill/uL (4.7-6.1); RED CELL DISTRIBUTION WIDTH 15.8 % (11.6-14.6)
[2022-08-20] MEDS: THEOPHYLLINE ANHYDROUS 80 MG/15 ML 120ML PEG SCH ×3 (06:46→17:49)
[2022-08-20 06:48] LABS: PROTHROMBIN TIME 10.9 sec (9.6-11.0)
[2022-08-20 07:33] LABS: CHLORIDE 106 mEq/L (98-107)
[2022-08-20] MEDS: ENOXAPARIN 80MG/0.8ML SYR SUBCUT SCH ×2 (07:51→19:24)
[2022-08-20] MEDS: BUDESONIDE 0.5MG/2ML NEB HHN SCH ×2 (08:15→20:15)
[2022-08-20] MEDS: CEFEPIME 1,000 MG in DEXTROSE 5% WATER 50 ML IV SCH ×2 (08:56→21:16)
[2022-08-20] MEDS: PANTOPRAZOLE SODIUM 40 MG/VIAL IV SCH (10:53)
[2022-08-20] MEDS ORDERED: RACEPINEPHRINE 2.25% 0.5ML NEB VIAL HHN PRN (12:00)
[2022-08-20] MEDS ORDERED: ETOMIDATE 2MG/ML 10ML VIAL IV ONE (12:00)
[2022-08-20] MEDS ORDERED: VECURONIUM BROMIDE 10 MG/VIAL IV ONE (12:00)
[2022-08-20] MEDS: HALOPERIDOL LACTATE 5MG/ML VIAL IM PRN ×2 (12:04→23:15)
[2022-08-20] MEDS: METHYLPREDNISOLONE SOD SUCC 40 MG/ML VIAL IV SCH ×2 (12:04→20:35)
[2022-08-20 12:23] LABS: BG FRACTION INSPIRED OXYGEN 30; BG SAMPLE SITE RIGHT RADIAL; BG VENT RATE 20 set
[2022-08-20 12:24] LABS: BG BASE EXCESS 2.8 mmol/L (-2.0-2.0); BG CARBOXYHEMOGLOBIN 0.6 % (0.5-1.5); BG HCO3 ACT 26.9 mmol/L (22.0-26.0); BG METHEMOGLOBIN 0.2 % (0.0-1.5); BG OXYGEN SATURATION 96.8 % (92.0-98.5); BG PCO2 39.7 mmHg (35.0-45.0); BG PH 7.449 (7.350-7.450); BG PO2 85.7 mmHg (75.0-100.0); BG TOTAL HEMOGLOBIN 13.2 g/dL (12.0-18.0)
[2022-08-20 12:25] LABS: BG DEOXYHEMOGLOBIN 3.2 % (0.0-5.0)
[2022-08-20 12:29] LABS: PLATELET ESTIMATE NORMAL
[2022-08-20 12:41] LABS: BG VENT MODE VENT-AC
[2022-08-20 13:02] LABS: BG FLOW(L/min) 15 L/min; BG FRACTION INSPIRED OXYGEN 60; BG SAMPLE SITE RIGHT RADIAL; BG VENT MODE COOL AEROSOL
[2022-08-20 13:03] LABS: BG CARBOXYHEMOGLOBIN 0.6 % (0.5-1.5); BG DEOXYHEMOGLOBIN 0.8 % (0.0-5.0); BG HCO3 ACT 32.9 mmol/L (22.0-26.0); BG METHEMOGLOBIN 0.1 % (0.0-1.5); BG OXYGEN SATURATION 99.2 % (92.0-98.5); BG OXYHEMOGLOBIN 98.5 % (94.0-97.0); BG PCO2 95.6 mmHg (35.0-45.0); BG PH 7.154 (7.350-7.450); BG TOTAL HEMOGLOBIN 14.1 g/dL (12.0-18.0)
[2022-08-20] MEDS: FENTANYL CITRATE/PF 2,500 MCG in SODIUM CHLORIDE 0.9% 200 ML IV PRN ×2 (14:19→20:55)
[2022-08-20 14:20] LABS: BG BASE EXCESS 4.7 mmol/L (-2.0-2.0); BG CARBOXYHEMOGLOBIN 0.4 % (0.5-1.5); BG DEOXYHEMOGLOBIN 1.2 % (0.0-5.0); BG FRACTION INSPIRED OXYGEN 40; BG HCO3 ACT 30.4 mmol/L (22.0-26.0); BG METHEMOGLOBIN 0.3 % (0.0-1.5); BG OXYGEN SATURATION 98.8 % (92.0-98.5); BG OXYHEMOGLOBIN 98.1 % (94.0-97.0); BG PCO2 49.8 mmHg (35.0-45.0); BG PH 7.404 (7.350-7.450); BG PO2 144.3 mmHg (75.0-100.0); BG SAMPLE SITE RIGHT RADIAL; BG TOTAL HEMOGLOBIN 13.3 g/dL (12.0-18.0); BG VENT MODE VENT - AC
[2022-08-20] MEDS: MIDAZOLAM HCL 100 MG in SODIUM CHLORIDE 0.9% 80 ML IV PRN (15:44)
[2022-08-20] MEDS: MONTELUKAST SODIUM 10MG TABLET PO SCH (17:48)
[2022-08-20] MEDS: QUETIAPINE FUMARATE 25MG TABLET PO SCH (20:35)
[2022-08-20] MEDS ORDERED: LORAZEPAM 2MG/ML CPJ IV NR (22:45)
[2022-08-21] VITALS (62 sets, daily range): BP systolic 110–183; BP diastolic 72–118
[2022-08-21] MEDS: IPRATROPIUM/ALBUTEROL 0.5-3(2.5)MG/3ML NEB HHN SCH ×6 (00:12→20:54)
[2022-08-21] MEDS: THEOPHYLLINE ANHYDROUS 80 MG/15 ML 120ML PEG SCH ×4 (00:31→17:12)
[2022-08-21] MEDS: METHYLPREDNISOLONE SOD SUCC 40 MG/ML VIAL IV SCH ×3 (05:15→20:56)
[2022-08-21] MEDS: HALOPERIDOL LACTATE 5MG/ML VIAL IM PRN (07:14)
[2022-08-21] MEDS: ENOXAPARIN 80MG/0.8ML SYR SUBCUT SCH ×2 (07:14→18:49)
[2022-08-21] MEDS: MIDAZOLAM HCL 100 MG in SODIUM CHLORIDE 0.9% 80 ML IV PRN ×2 (07:15→21:20)
[2022-08-21] MEDS: BUDESONIDE 0.5MG/2ML NEB HHN SCH ×2 (08:31→20:54)
[2022-08-21 08:50] LABS: BG BASE EXCESS 5.5 mmol/L (-2.0-2.0); BG CARBOXYHEMOGLOBIN 0.4 % (0.5-1.5); BG DEOXYHEMOGLOBIN 1.9 % (0.0-5.0); BG FRACTION INSPIRED OXYGEN 30; BG METHEMOGLOBIN 0.3 % (0.0-1.5); BG OXYGEN SATURATION 98.1 % (92.0-98.5); BG OXYHEMOGLOBIN 97.4 % (94.0-97.0); BG PCO2 33.7 mmHg (35.0-45.0); BG PH 7.537 (7.350-7.450); BG PO2 98.1 mmHg (75.0-100.0); BG SAMPLE SITE RIGHT RADIAL; BG TOTAL HEMOGLOBIN 12.4 g/dL (12.0-18.0); BG TOTAL RESPIRATORY RATE 20 b/min; BG VENT MODE VENT - AC
[2022-08-21] MEDS ORDERED: DOCUSATE SODIUM SUGAR FREE 100MG/10ML UDC NG PRN (09:00)
[2022-08-21] MEDS: PANTOPRAZOLE SODIUM 40 MG/VIAL IV SCH (09:25)
[2022-08-21] MEDS: QUETIAPINE FUMARATE 25MG TABLET PO SCH ×2 (09:25→20:59)
[2022-08-21] MEDS: CEFEPIME 1,000 MG in DEXTROSE 5% WATER 50 ML IV SCH ×2 (09:26→20:56)
[2022-08-21 12:11] LABS: HEMATOCRIT 36.1 % (42.0-52.0); HEMOGLOBIN 11.5 g/dL (14.0-18.0); MEAN CORPUSCULAR HEMOGLOBIN 26.4 pg (28.0-32.0); MEAN CORPUSCULAR VOLUME 82.4 fL (80.0-94.0); PLATELET 335 x1000/uL (130-400); RED BLOOD CELL COUNT 4.38 mill/uL (4.7-6.1); RED CELL DISTRIBUTION WIDTH 15.8 % (11.6-14.6)
[2022-08-21] MEDS ORDERED: FENTANYL 2500MCG/250ML PMX 250 ML IV ONE (12:15)
[2022-08-21] MEDS ORDERED: FENTANYL CITRATE/PF 2,500 MCG in SODIUM CHLORIDE 0.9% 200 ML IV PRN (12:15)
[2022-08-21 12:24] LABS: CHLORIDE 110 mEq/L (98-107)
[2022-08-21 12:35] LABS: PHOSPHORUS 2.2 mg/dL (2.5-4.9)
[2022-08-21] MEDS: FENTANYL CITRATE/PF 2,500 MCG in SODIUM CHLORIDE 0.9% 200 ML IV PRN (14:56)
[2022-08-21] MEDS: MONTELUKAST SODIUM 10MG TABLET PO SCH (17:11)
[2022-08-22] VITALS (95 sets, daily range): BP systolic 125–188; BP diastolic 71–142
[2022-08-22] MEDS: IPRATROPIUM/ALBUTEROL 0.5-3(2.5)MG/3ML NEB HHN SCH ×6 (00:37→20:24)
[2022-08-22] MEDS: THEOPHYLLINE ANHYDROUS 80 MG/15 ML 120ML PEG SCH ×4 (00:38→18:20)
[2022-08-22] MEDS: METHYLPREDNISOLONE SOD SUCC 40 MG/ML VIAL IV SCH ×3 (04:53→20:14)
[2022-08-22 06:26] LABS: HEMATOCRIT. 39.6 % (42.0-52.0); HEMOGLOBIN. 12.7 g/dL (14.0-18.0); MEAN CORPUSCULAR HEMOGLOBIN 26.7 pg (28.0-32.0); MEAN CORPUSCULAR VOLUME 83.6 fL (80.0-94.0); MEAN PLATELET VOLUME 7.2 fl (7.4-10.4); PLATELET 353 x1000/uL (130-400); RED BLOOD CELL COUNT 4.74 mill/uL (4.7-6.1); RED CELL DISTRIBUTION WIDTH 15.8 % (11.6-14.6)
[2022-08-22] MEDS: ENOXAPARIN 80MG/0.8ML SYR SUBCUT SCH ×2 (06:37→20:14)
[2022-08-22 06:40] LABS: CHLORIDE 110 mEq/L (98-107)
[2022-08-22 08:13] LABS: PLATELET ESTIMATE NORMAL
[2022-08-22] MEDS: BUDESONIDE 0.5MG/2ML NEB HHN SCH (08:21)
[2022-08-22 08:34] LABS: BG BASE EXCESS 1.3 mmol/L (-2.0-2.0); BG CARBOXYHEMOGLOBIN 0.3 % (0.5-1.5); BG DEOXYHEMOGLOBIN 4.3 % (0.0-5.0); BG FRACTION INSPIRED OXYGEN 30; BG HCO3 ACT 25.3 mmol/L (22.0-26.0); BG METHEMOGLOBIN 0.1 % (0.0-1.5); BG OXYGEN SATURATION 95.7 % (92.0-98.5); BG OXYHEMOGLOBIN 95.3 % (94.0-97.0); BG PCO2 37.8 mmHg (35.0-45.0); BG PH 7.443 (7.350-7.450); BG PO2 81.1 mmHg (75.0-100.0); BG SAMPLE SITE RIGHT RADIAL; BG TOTAL HEMOGLOBIN 12.8 g/dL (12.0-18.0); BG VENT MODE VENT - AC
[2022-08-22] MEDS: MIDAZOLAM HCL 100 MG in SODIUM CHLORIDE 0.9% 80 ML IV PRN (08:38)
[2022-08-22] MEDS: PANTOPRAZOLE SODIUM 40 MG/VIAL IV SCH (08:38)
[2022-08-22] MEDS: QUETIAPINE FUMARATE 25MG TABLET PO SCH (08:38)
[2022-08-22] MEDS: DEXMEDETOMIDINE 400 MCG/100 ML 100 ML IV PRN ×2 (13:44→20:50)
[2022-08-22] MEDS: MONTELUKAST SODIUM 10MG TABLET PO SCH (18:19)
[2022-08-22] MEDS: QUETIAPINE FUMARATE 50MG TABLET PO SCH (21:28)
[2022-08-22] MEDS: HALOPERIDOL LACTATE 5MG/ML VIAL IM PRN (21:29)
[2022-08-22] MEDS ORDERED: HYDRALAZINE 20MG/ML VIAL IV PRN (22:00)
[2022-08-23] VITALS (93 sets, daily range): BP systolic 98–218; BP diastolic 44–139
[2022-08-23] MEDS: IPRATROPIUM/ALBUTEROL 0.5-3(2.5)MG/3ML NEB HHN SCH ×7 (00:15→23:42)
[2022-08-23] MEDS: THEOPHYLLINE ANHYDROUS 80 MG/15 ML 120ML PEG SCH ×5 (00:48→23:37)
[2022-08-23] MEDS: DEXMEDETOMIDINE 400 MCG/100 ML 100 ML IV PRN ×5 (02:05→21:27)
[2022-08-23] MEDS: METHYLPREDNISOLONE SOD SUCC 40 MG/ML VIAL IV SCH ×3 (04:37→20:35)
[2022-08-23 06:53] LABS: HEMOGLOBIN. 13.8 g/dL (14.0-18.0); MEAN CORPUSCULAR HEMOGLOBIN 26.4 pg (28.0-32.0); MEAN CORPUSCULAR VOLUME 82.3 fL (80.0-94.0); MEAN PLATELET VOLUME 7.2 fl (7.4-10.4); PLATELET 425 x1000/uL (130-400); RED BLOOD CELL COUNT 5.22 mill/uL (4.7-6.1); RED CELL DISTRIBUTION WIDTH 15.9 % (11.6-14.6)
[2022-08-23 07:02] LABS: CHLORIDE 107 mEq/L (98-107)
[2022-08-23 08:40] LABS: BG BASE EXCESS 0.7 mmol/L (-2.0-2.0); BG CARBOXYHEMOGLOBIN 0.5 % (0.5-1.5); BG DEOXYHEMOGLOBIN 1.4 % (0.0-5.0); BG FRACTION INSPIRED OXYGEN 40; BG HCO3 ACT 25.5 mmol/L (22.0-26.0); BG OXYGEN SATURATION 98.6 % (92.0-98.5); BG OXYHEMOGLOBIN 98.1 % (94.0-97.0); BG PCO2 41.6 mmHg (35.0-45.0); BG PH 7.406 (7.350-7.450); BG SAMPLE SITE RIGHT RADIAL; BG TOTAL HEMOGLOBIN 14.4 g/dL (12.0-18.0); BG VENT MODE VENT - AC
[2022-08-23] MEDS: ENOXAPARIN 80MG/0.8ML SYR SUBCUT SCH ×2 (08:42→20:35)
[2022-08-23] MEDS: QUETIAPINE FUMARATE 50MG TABLET PO SCH ×2 (08:42→21:11)
[2022-08-23] MEDS: PANTOPRAZOLE SODIUM 40 MG/VIAL IV SCH (08:42)
[2022-08-23 10:11] LABS: BG CARBOXYHEMOGLOBIN 0.9 % (0.5-1.5); BG DEOXYHEMOGLOBIN 3.3 % (0.0-5.0); BG FRACTION INSPIRED OXYGEN 35; BG HCO3 ACT 26.2 mmol/L (22.0-26.0); BG METHEMOGLOBIN 0.3 % (0.0-1.5); BG OXYGEN SATURATION 96.7 % (92.0-98.5); BG OXYHEMOGLOBIN 95.5 % (94.0-97.0); BG PH 7.393 (7.350-7.450); BG PO2 86.9 mmHg (75.0-100.0); BG SAMPLE SITE RIGHT RADIAL; BG TOTAL HEMOGLOBIN 14.5 g/dL (12.0-18.0); BG VENT MODE VENT - CPAP
[2022-08-23] MEDS: IPRATROPIUM/ALBUTEROL 0.5-3(2.5)MG/3ML NEB HHN PRN ×2 (10:29→12:05)
[2022-08-23] MEDS: RACEPINEPHRINE 2.25% 0.5ML NEB VIAL HHN PRN ×2 (10:29→12:04)
[2022-08-23] MEDS ORDERED: METHYLPREDNISOLONE SOD SUCC 125 MG/2 ML VIAL IV NR (11:30)
[2022-08-23] MEDS ORDERED: DIPHENHYDRAMINE 50MG/ML VIAL IV NR (11:45)
[2022-08-23] MEDS ORDERED: FAMOTIDINE 20MG/2ML VIAL IV NR (11:45)
[2022-08-23 12:14] LABS: BG BASE EXCESS 1.6 mmol/L (-2.0-2.0); BG CARBOXYHEMOGLOBIN 0.9 % (0.5-1.5); BG DEOXYHEMOGLOBIN 4.3 % (0.0-5.0); BG HCO3 ACT 27.9 mmol/L (22.0-26.0); BG METHEMOGLOBIN 0.3 % (0.0-1.5); BG OXYGEN SATURATION 95.6 % (92.0-98.5); BG OXYHEMOGLOBIN 94.5 % (94.0-97.0); BG PCO2 49.9 mmHg (35.0-45.0); BG PH 7.365 (7.350-7.450); BG PO2 81.1 mmHg (75.0-100.0); BG SAMPLE SITE RIGHT BRACHIAL; BG VENT MODE COOL AEROSOL
[2022-08-23] MEDS ORDERED: IPRATROPIUM BROMIDE (0.02%) 0.5MG/2.5ML NEB HHN NR (12:45)
[2022-08-23] MEDS ORDERED: MAGNESIUM 1 G PREMIX 100 ML IV NR (13:00)
[2022-08-23] MEDS ORDERED: TERBUTALINE SULFATE 1MG/ML VIAL SUBCUT NR (14:00)
[2022-08-23] MEDS ORDERED: LORAZEPAM 2MG/ML CPJ IV NR (14:00)
[2022-08-23] MEDS ORDERED: HYDRALAZINE 20MG/ML VIAL IV PRN (14:15)
[2022-08-23] MEDS ORDERED: LORAZEPAM 2MG/ML CPJ IV PRN (15:00)
[2022-08-23] MEDS: MONTELUKAST SODIUM 10MG TABLET PO SCH (16:02)
[2022-08-23 17:22] LABS: PLATELET ESTIMATE INCREASED
[2022-08-23] MEDS: HYDRALAZINE 20MG/ML VIAL IV PRN ×2 (19:08→22:07)
[2022-08-24] VITALS (68 sets, daily range): BP systolic 108–217; BP diastolic 40–118
[2022-08-24] MEDS: DEXMEDETOMIDINE 400 MCG/100 ML 100 ML IV PRN ×3 (00:39→07:09)
[2022-08-24] MEDS: IPRATROPIUM/ALBUTEROL 0.5-3(2.5)MG/3ML NEB HHN SCH ×3 (03:55→12:14)
[2022-08-24] MEDS: METHYLPREDNISOLONE SOD SUCC 40 MG/ML VIAL IV SCH ×3 (04:05→20:41)
[2022-08-24] MEDS: THEOPHYLLINE ANHYDROUS 80 MG/15 ML 120ML PEG SCH ×4 (05:21→23:11)
[2022-08-24] MEDS: PANTOPRAZOLE SODIUM 40 MG/VIAL IV SCH (08:38)
[2022-08-24] MEDS: QUETIAPINE FUMARATE 50MG TABLET PO SCH ×2 (08:38→20:41)
[2022-08-24] MEDS: ENOXAPARIN 80MG/0.8ML SYR SUBCUT SCH ×2 (08:39→18:32)
[2022-08-24] MEDS ORDERED: METOPROLOL TARTRATE 50MG TABLET PO SCH (09:00)
[2022-08-24] MEDS ORDERED: CLONIDINE 0.1MG TABLET PO PRN (10:45)
[2022-08-24 11:48] LABS: BG CARBOXYHEMOGLOBIN 0.7 % (0.5-1.5); BG DEOXYHEMOGLOBIN 1.9 % (0.0-5.0); BG FRACTION INSPIRED OXYGEN 40; BG HCO3 ACT 26.8 mmol/L (22.0-26.0); BG METHEMOGLOBIN 0.3 % (0.0-1.5); BG OXYGEN SATURATION 98.1 % (92.0-98.5); BG OXYHEMOGLOBIN 97.1 % (94.0-97.0); BG PCO2 42.5 mmHg (35.0-45.0); BG PH 7.418 (7.350-7.450); BG PO2 104.7 mmHg (75.0-100.0); BG SAMPLE SITE RIGHT RADIAL; BG TOTAL HEMOGLOBIN 15.8 g/dL (12.0-18.0); BG VENT MODE MASK - BIPAP
[2022-08-24] MEDS: IPRATROPIUM/ALBUTEROL 0.5-3(2.5)MG/3ML NEB HHN PRN (17:11)
[2022-08-24] MEDS: MONTELUKAST SODIUM 10MG TABLET PO SCH (18:31)
[2022-08-24] MEDS: HYDRALAZINE 20MG/ML VIAL IV PRN (23:10)
[2022-08-25] VITALS (31 sets, daily range): BP systolic 97–223; BP diastolic 45–125
[2022-08-25] MEDS: IPRATROPIUM/ALBUTEROL 0.5-3(2.5)MG/3ML NEB HHN PRN (00:15)
[2022-08-25] MEDS: METHYLPREDNISOLONE SOD SUCC 40 MG/ML VIAL IV SCH ×3 (04:21→20:50)
[2022-08-25] MEDS: ENOXAPARIN 80MG/0.8ML SYR SUBCUT SCH ×2 (05:52→17:14)
[2022-08-25] MEDS: THEOPHYLLINE ANHYDROUS 80 MG/15 ML 120ML PEG SCH ×3 (05:52→17:15)
[2022-08-25] MEDS: HYDRALAZINE 20MG/ML VIAL IV PRN (06:13)
[2022-08-25] MEDS: PANTOPRAZOLE SODIUM 40 MG/VIAL IV SCH (08:56)
[2022-08-25] MEDS: QUETIAPINE FUMARATE 50MG TABLET PO SCH ×2 (08:56→20:50)
[2022-08-25] MEDS: IPRATROPIUM BROMIDE (0.02%) 0.5MG/2.5ML NEB HHN SCH ×4 (09:06→21:45)
[2022-08-25] MEDS: MONTELUKAST SODIUM 10MG TABLET PO SCH (17:14)
[2022-08-26] VITALS (11 sets, daily range): BP systolic 114–155; BP diastolic 77–99
[2022-08-26] MEDS: THEOPHYLLINE ANHYDROUS 80 MG/15 ML 120ML PEG SCH ×5 (00:16→23:33)
[2022-08-26] MEDS: IPRATROPIUM BROMIDE (0.02%) 0.5MG/2.5ML NEB HHN SCH ×4 (01:44→20:51)
[2022-08-26] MEDS: METHYLPREDNISOLONE SOD SUCC 40 MG/ML VIAL IV SCH ×3 (04:05→20:32)
[2022-08-26] MEDS: ENOXAPARIN 80MG/0.8ML SYR SUBCUT SCH ×2 (05:36→17:07)
[2022-08-26] MEDS: QUETIAPINE FUMARATE 50MG TABLET PO SCH ×2 (08:42→20:32)
[2022-08-26] MEDS: PANTOPRAZOLE SODIUM 40 MG/VIAL IV SCH (08:42)
[2022-08-26] MEDS ORDERED: THROAT LOZENGES-BENZOCAINE/MENTH/CETYLPYRD CL LOZENGES MM PRN (15:45)
[2022-08-26] MEDS: MONTELUKAST SODIUM 10MG TABLET PO SCH (17:01)
[2022-08-27] VITALS (11 sets, daily range): BP systolic 120–155; BP diastolic 80–97
[2022-08-27] MEDS: IPRATROPIUM BROMIDE (0.02%) 0.5MG/2.5ML NEB HHN SCH ×4 (03:16→20:59)
[2022-08-27] MEDS: METHYLPREDNISOLONE SOD SUCC 40 MG/ML VIAL IV SCH ×3 (04:19→21:25)
[2022-08-27] MEDS: ENOXAPARIN 80MG/0.8ML SYR SUBCUT SCH ×2 (05:22→17:27)
[2022-08-27] MEDS: THEOPHYLLINE ANHYDROUS 80 MG/15 ML 120ML PEG SCH ×3 (05:23→17:31)
[2022-08-27] MEDS: QUETIAPINE FUMARATE 50MG TABLET PO SCH ×2 (08:26→21:25)
[2022-08-27] MEDS: PANTOPRAZOLE SODIUM 40 MG/VIAL IV SCH (08:26)
[2022-08-27 13:03] LABS: BG BASE EXCESS 5.3 mmol/L (-2.0-2.0); BG CARBOXYHEMOGLOBIN 1.2 % (0.5-1.5); BG DEOXYHEMOGLOBIN 7.7 % (0.0-5.0); BG FRACTION INSPIRED OXYGEN 21; BG HCO3 ACT 30.5 mmol/L (22.0-26.0); BG METHEMOGLOBIN 0.3 % (0.0-1.5); BG OXYGEN SATURATION 92.2 % (92.0-98.5); BG OXYHEMOGLOBIN 90.8 % (94.0-97.0); BG PCO2 46.2 mmHg (35.0-45.0); BG PH 7.437 (7.350-7.450); BG PO2 58.8 mmHg (75.0-100.0); BG SAMPLE SITE RIGHT BRACHIAL; BG TOTAL HEMOGLOBIN 15.1 g/dL (12.0-18.0); BG VENT MODE ROOM AIR
[2022-08-27] MEDS: MONTELUKAST SODIUM 10MG TABLET PO SCH (17:30)
[2022-08-28] VITALS (9 sets, daily range): BP systolic 120–152; BP diastolic 52–88
[2022-08-28] MEDS: THEOPHYLLINE ANHYDROUS 80 MG/15 ML 120ML PEG SCH ×3 (00:04→11:43)
[2022-08-28] MEDS: IPRATROPIUM BROMIDE (0.02%) 0.5MG/2.5ML NEB HHN SCH ×3 (02:03→14:02)
[2022-08-28] MEDS: METHYLPREDNISOLONE SOD SUCC 40 MG/ML VIAL IV SCH ×2 (04:18→12:39)
[2022-08-28] MEDS: ENOXAPARIN 80MG/0.8ML SYR SUBCUT SCH (05:27)
[2022-08-28] MEDS: PANTOPRAZOLE SODIUM 40 MG/VIAL IV SCH (08:21)
[2022-08-28] MEDS: QUETIAPINE FUMARATE 50MG TABLET PO SCH (08:26)
[2022-08-28 09:58] LABS: BG BASE EXCESS 0.2 mmol/L (-2.0-2.0); BG DEOXYHEMOGLOBIN 2.8 % (0.0-5.0); BG FRACTION INSPIRED OXYGEN 26; BG HCO3 ACT 23.8 mmol/L (22.0-26.0); BG METHEMOGLOBIN 0.3 % (0.0-1.5); BG OXYGEN SATURATION 97.2 % (92.0-98.5); BG OXYHEMOGLOBIN 95.9 % (94.0-97.0); BG PCO2 35.4 mmHg (35.0-45.0); BG PH 7.445 (7.350-7.450); BG PO2 86.2 mmHg (75.0-100.0); BG SAMPLE SITE RIGHT BRACHIAL; BG TOTAL HEMOGLOBIN 14.9 g/dL (12.0-18.0); BG VENT MODE NASAL CANNULA
[2022-08-28] MEDS ORDERED: ALBU18HF2 IH (12:03)
[2022-08-28] MEDS ORDERED: P20 MT (12:03)
[2022-08-28] MEDS ORDERED: FLUT1DIS3 INH (12:03)
== END 2022-08-28 16:46 | disposition home health service (06) | DRG 720 ==
LOC: ER 23:07 → MICUSO 23:48 → CVICU 08-16 06:33 → 5EST 08-25 15:05
PROVIDERS: ADMIT Internal Medicine; ATTEND Internal Medicine
PROC: 0BH17EZ Insertion of Endotracheal Airway into Trachea, Via Natural or Artificial Opening (ICD-10-PCS; 2022-08-15)
PROC: 5A09357 Assistance with Respiratory Ventilation, Less than 24 Consecutive Hours, Continuous Positive Airway Pressure (ICD-10-PCS; 2022-08-15)
PROC: 5A1955Z Respiratory Ventilation, Greater than 96 Consecutive Hours (ICD-10-PCS; principal; 2022-08-16)
PROC: 0BH17EZ Insertion of Endotracheal Airway into Trachea, Via Natural or Artificial Opening (ICD-10-PCS; 2022-08-20)
PROC: 5A1945Z Respiratory Ventilation, 24-96 Consecutive Hours (ICD-10-PCS; 2022-08-20)
PROC: 5A09357 Assistance with Respiratory Ventilation, Less than 24 Consecutive Hours, Continuous Positive Airway Pressure (ICD-10-PCS; 2022-08-25)
DX: A41.9 Sepsis, unspecified organism (principal); I26.99 Other pulmonary embolism without acute cor pulmonale; J96.00 Acute respiratory failure, unspecified whether with hypoxia or hypercapnia; G93.41 Metabolic encephalopathy; J45.901 Unspecified asthma with (acute) exacerbation; E87.1 Hypo-osmolality and hyponatremia; I10 Essential (primary) hypertension; N39.0 Urinary tract infection, site not specified; Z20.822 Contact with and (suspected) exposure to COVID-19; E87.5 Hyperkalemia; R73.9 Hyperglycemia, unspecified; F17.210 Nicotine dependence, cigarettes, uncomplicated; Z78.1 Physical restraint status
CPT/HCPCS: 31500; 36415; 36600; 71045; 71275; 80048; 80053; 80305; 81003; 82375; 82805; 83036; 83605; 83735; 83880; 84100; 84478; 84484; 85025; 85027; 85379; 85613; 85732; 87070; 87426; 92610; 93005; 93306; 93970; 94002; 94003; 94640; 94644; 94660; 97162; 99291; A6261; C9113; J0360; J0692; J1200; J1630; J1650; J2060; J2250; J2270; J2405; J2704; J2920; J2930; J3010; J3105; J3475; J3490; J7030; J7050; J7060; J7626; Q9957; Q9967